=== PATIENT | male | born 1960 | race Caucasian/White ===

== ENCOUNTER 2018-07-04 09:35 | Observation (INO) ==
[2018-07-04] MEDS ORDERED: Chlorhexidine Gluconate 2% 1 Pack (2 Cloths) TOPICAL ONE (10:30)
[2018-07-04] MEDS ORDERED: Sodium Chlor 0.9% Inj 500 ML IV.CONT ONE (10:30)
[2018-07-04] MEDS ORDERED: Sod Chloride 0.9% Inj 1,000 ML IV.CONT SCH (10:30)
[2018-07-04] MEDS ORDERED: Metoprolol Tartrate 25 MG Tablet PO ONE (10:30)
[2018-07-04] MEDS ORDERED: Vancomycin Inj 1,000 MG in Sodium Chlor 0.9% Inj 250 ML IV.SIG SCH (11:00)
[2018-07-04 11:16] LABS: Baso # (Auto) 0.1 th/mm3 (0.0-0.2); Baso % (Auto) 1.1 % (0.0-2.0); Eos # (Auto) 0.1 th/mm3 (0.0-0.4); Eos % (Auto) 1.5 % (0.0-4.0); Hematocrit 44.6 % (39.0-51.0); Hemoglobin 15.4 gm/dL (13.0-17.0); Lymph # (Auto) 1.9 th/mm3 (1.0-4.8); Lymph % (Auto) 24.9 % (9.0-44.0); Mean Corpuscular HGB Conc 34.5 % (32.0-36.0); Mean Corpuscular Hemoglobin 33.3 pg (27.0-34.0); Mean Corpuscular Volume 96.5 fL (80.0-100.0); Mean Platelet Volume 8.3 fL (7.0-11.0); Mono # (Auto) 0.4 th/mm3 (0.0-0.9); Mono % (Auto) 5.3 % (0.0-8.0); Neut # (Auto) 5.2 th/mm3 (1.8-7.7); Neut % (Auto) 67.2 % (16.0-70.0); Platelet Count 209 th/mm3 (150-450); Red Blood Count 4.62 mil/mm3 (4.50-5.90); Red Cell Distribution Width 14.1 % (11.6-17.2); White Blood Count 7.8 th/mm3 (4.0-11.0)
[2018-07-04] MEDS ORDERED: Gelatin Size 100 Topical Foam ONE (11:38)
[2018-07-04] MEDS ORDERED: Thrombin Topical Soln 5,000 UNIT Vial TOPICAL ONE (11:38)
[2018-07-04 11:42] LABS: Bilirubin,Urine Negative (Negative); Clarity,Urine Clear (Clear); Color,Urine Yellow (Yellw/Straw); Glucose,Urine (UA) Negative (Negative); Leukocyte Esterase,Urine Negative (Negative); Mucus,Urine Few /lpf (Occasional); Nitrite,Urine Negative (Negative); Specific Gravity,Urine 1.012 (1.002-1.035)
[2018-07-04] MEDS ORDERED: ceFAZolin 1 GM Premix Inj 2 GM/100 ML PIGGYBACK IV.SIG ONE (12:29)
[2018-07-04] MEDS ORDERED: Artificial Tears Opth Oint 3.5 GM Tube ONE (12:32)
[2018-07-04] MEDS ORDERED: fentaNYL Citrate Inj 100 MCG/2 ML Ampul ONE (15:08)
[2018-07-04] MEDS ORDERED: *morphine SULFATE 10 MG/ML PERIprocedure ONLY ONE ×2 (15:25→15:37)
[2018-07-04] MEDS ORDERED: Bisacodyl 10 MG Supp RECTAL PRN ×2 (15:26→15:28)
[2018-07-04] MEDS ORDERED: Acetaminophen 325 MG Tablet PO PRN (15:28)
[2018-07-04] MEDS ORDERED: Menthol 5.8 MG Lozenge BUCCAL PRN (15:28)
[2018-07-04] MEDS: Sod Chloride 0.9% Inj 1,000 ML IV.CONT SCH (15:40)
--- NOTE | 2018-07-04 15:44 | XR ---
EXAM DATE: 07/04/2018 3:33 PM EST AGE/SEX: 58 years / Male INDICATIONS: Fusion C5,C6 with screws and plate placement. CLINICAL DATA: This is the patient's initial encounter. Patient reports that signs and symptoms have been present for 1 day and indicates a pain score of Nonresponsive. MEDICAL/SURGICAL HISTORY: None. None. COMPARISON: No prior exams available for comparison. FINDINGS: AP and lateral views of the cervical spine were obtained and demonstrate the patient status post ante rior cervical fusion at the C5-6 level with intact anterior screw plate fixation device. Bone graftin g material is noted in the interspaces with metallic markers. The alignment is anatomic. An endotrach eal tube and nasogastric tube are noted. There is mild overlying artifact. CONCLUSION: Status post anterior fusion at the C5-6 level. Electronically signed by: Felipe Hernandez MD Board Certified Radiologist 07/04/2018 3:42 PM EST
--- NOTE | 2018-07-04 16:11 | ECG ---
Date Performed: 07/04/2018 Time Performed: 11:31:26 PTAGE: 58 years EKG: Sinus rhythm INCOMPLETE RIGHT BUNDLE BRANCH BLOCK BORDERLINE ECG NO PREVIOUS TRACING DOCTOR: Pérez Mc Interpretating Date/Time 07/04/2018 16:10:41
--- NOTE | 2018-07-04 17:13 | P.OP ---
Preoperative Diagnosis: C5-6 disk herniation Postoperative Diagnosis: C5-6 disk herniation Date of procedure: 07/04/18 Procedure: C5-6 anterior cervical discectomy, interbody arthodhesis using PEEK cage filled with autologous bone graft, Simplicity plate and screws Surgeon: Wilian Bray MD Pathology: none sent Operation and Findings: INDICATIONS FOR THE PROCEDURE Mr Michel is a 58 year-old male who presented with intractable neck pain and clinical evidence of C6 upper extremity radiculopathy.He has a disk herniation at C5-6. He has failed maximum nonsurgical management including multiple modalities of conservative treatment as well as pain management interventions by an interventional pain specialist. A surgical decompression and arthrodhesis were indicated. The [id number] details of the procedure, indications, alternatives, risks and potential complications were fully discussed with the patient. The patient fully understood. All The questions were answered. No guarantees were given. The patient voiced requesting the procedure and provided informed consents. The patient was offered the alternative of delaying the procedure and continuing with nonsurgical management. DETAILS OF THE SURGICAL PROCEDURE After the induction of general anesthesia, endotracheal intubation was performed. A Wills catheter, bilateral BRI hose, and sequential compression devices were placed and kept throughout the procedure. The patient was positioned supine on a Arnold table with the head over a gel doughnut. All pressure points were carefully padded with egg crate mattress. The eyes were tapped shut after ointment was applied by the anesthesiologist to prevent corneal abrasion. A Tiffanie hugger was placed over the exposed lower body to maintain control of the core body temperature. The electrophysiological team placed the needles and electrodes in their proper location and baseline SSEP's and motor evoked potentials were registered. The anterior cervical region was prepped and draped in the usual sterile fashion. A localizing x-ray was performed with a C-arm. The surgical procedure was performed in several steps as follow: SURGICAL APPROACH A skin incision was made along the middle cervical crease with a #10 blade. The dissection was carried out through the platysma exposing the sternocleidomastoid muscle. The cervical spine was approached following the fascial layers of the neck just medial to the anterior border of the sternocleidomastoid and carotid sheath by a combination of sharp and dull dissection. The omohyoid muscle was identified and carefully dissected laterally and the deep cervical fascia was carefully opened. The longus colli muscles were retracted to each side of the midline. A marker was placed at the disc space C5-6 and a cross-table lateral x-ray performed with a C-arm. SURGICAL DECOMPRESSION In order to decompress the anterior surface of the spinal cord it was necessary to preform a microsurgical resection of the disk. At this point in the procedure the operating microscope was draped in the usual sterile fashion and brought to the field. The rest of the surgical procedure was performed using microdissection technique with the exception of the closure. Under the operative microscopic, an anterior osteophytic spur was carefully removed using the leksell, and a self-retaining retractor was placed underneath the longus colli muscle. The annulus at C5-6 was incised with a #15 blade and microdiscectomy was then carefully carried out using angled curets and pituitary forceps. The patient had a posterior disk herniation complex which was producing mass affect on the anterior surface of the dural sac. This was carefully drilled with a TPS drill and resected with a think foot plate 2mm kerrison under high magnification. The posterior longitudinal ligament was then elevated with an angled curet and incised with a 15 bladed knife. A careful resection of the posterior longitudinal ligament was carried out using a thin footplate 2 mm Kerrison. The decompression was then carried out laterally , and a bilateral foraminotomy was performed with a 2mm thin foot Kerrison. Then the vertebral bodies above and below the disk space were undercut using a 2 mm thin foot Kerrison. The epidural space was the systematically assessed with a nerve hook in search for disk fragments. An excellent decompression was achieved in both, the dural sac and bilateral exiting nerve roots. The incision was then irrigated with a large amount of antibiotic solution INTERBODY ARTHRODHESIS In order to avoid collapse of the disk space which would result in bilateral foraminal stenosis, and to increase the chances of a successful fusion, it was necessary to place an interbody cage filled with autologous bone. At this point of the procedure, the superior and inferior endplates were then evenly decorticated with a TPS drill. The use of a drill in combination with a curette allowed me to systematically remove the cartilaginous endplates, exposing healthy bone for the interbody arthrodesis. fourteen millimeters distraction pins were then placed at the vertebral bodies adjacent to the disk space, and gentle distraction was applied. The size of the interbody cage was then assessed using different size spacers, and a rasp was used to ensure no residual cartilage. A PEEK cage of the appropriate size was selected, and the interbody arthrodesis was then preformed by carefully impacting a PEEK cage filled with autologous bone graft to the disc space C5-6. An excellent position of the cage was achieved. This was was confirmed anatomically by felling the space posterior to the implant and distance to the anterior surface of the dural sac. Radiological confirmation of the position was performed with a cross lateral xray performed with the C-arm. INTERNAL INSTRUMENTAL FIXATION Once that the interbody device was in an appropriate position, it was necessary to stabilize the spine with anterior instrumentation. Anterior instrumentation has demonstrated to increase the rate of fusion, accelerate the patient's recovery, and decrease the rate of failed interbody grafts. At this point of the procedure, the distance between the vertebral bodies was carefully measures, and a Simplicity plate was brought to the field and presented in front of the C5 and 6 vertebral bodies. Event Av Operator holes were then drilled using the TPS drill, and the plate was then secured to the spine using self-drilling, self-tapping screws. Initially, the inferior right screw was inserted, followed by placement of the contra lateral upper screw. The remaining screws were sequentially placed in a contra-lateral fashion. A proper purchase was achieved with all screws and the position of the cage, plate and screws, and alignment of the spine was assessed anatomically by direct visualization, and radiologically by performing a cross lateral xray of the cervical spine with the C-arm. CLOSURE The incision was irrigated with several liters of antibiotic solution. Hemostasis was achieved with a bipolar. The screws were locked to prevent backing out. A 7 mm Arnold-Honeycutt drain was left in the prevertebral space and externalized through a separate stab incision. The incision was then closed in layers. 3-0 Vicryl with interrupted sutures was used to close the platysma and subcutaneous tissue. The skin was closed with 4-0 running subcuticular Vicryl and Dermabond was applied to the skin. The drain was secured with a 3-0 nylon. At the end of the procedure the sponge, needle and instrument counts were all correct. The estimated blood loss was less than 60 cc. No blood transfusion was given. No intraoperative complications occurred. The patient received prophylactic antibiotics. The patient was then extubated and transferred to the recovery room in stable condition.
[2018-07-04] MEDS ORDERED: Senna/Docusate Sodium 8.6/50 MG Tablet PO SCH (21:00)
[2018-07-04] MEDS: Gabapentin 300 MG Capsule PO SCH (21:00)
[2018-07-04] MEDS: Morphine Sulfate Inj 2 MG/ML Vial IV.PUSH PRN (21:00)
[2018-07-04] MEDS: Senna/Docusate Sodium 8.6/50 MG Tablet PO SCH (21:00)
[2018-07-04] MEDS: ceFAZolin 2 GM Premix Inj 2 GM/50 ML PIGGYBACK IV.SIG SCH (21:01)
[2018-07-04] MEDS ORDERED: Propofol Inj 500 MG/50 ML Vial ONE (21:32)
[2018-07-04] MEDS ORDERED: fentaNYL Citrate Inj 250 MCG/5 ML Ampul ONE (21:46)
[2018-07-05] MEDS: Sod Chloride 0.9% Inj 1,000 ML IV.CONT SCH ×2 (00:36→11:30)
[2018-07-05] MEDS: Morphine Sulfate Inj 2 MG/ML Vial IV.PUSH PRN ×3 (03:18→12:25)
[2018-07-05] MEDS: ceFAZolin 2 GM Premix Inj 2 GM/50 ML PIGGYBACK IV.SIG SCH ×2 (06:27→13:00)
[2018-07-05] MEDS: Gabapentin 300 MG Capsule PO SCH (08:06)
[2018-07-05] MEDS: Senna/Docusate Sodium 8.6/50 MG Tablet PO SCH (08:06)
[2018-07-05] MEDS ORDERED: Multivitamin/Minerals Therapeutic Tablet PO SCH (09:00)
[2018-07-05 13:12] VITALS: BP 136/75; PULSE 80; RESP 18; TEMP 97.6; O2SAT 95
--- NOTE | 2018-07-05 14:04 | P.PNNS ---
Subjective Interval history: The patient is stable postoperative day #1 status post anterior cervical discectomy and fusion at C5-C6 he complains of some mild neck pain and dysphagia. He denies any hoarseness. He is tolerating a diet Physical Exam Vital signs: Vital Signs 07/04/18 15:01 07/04/18 15:15 07/04/18 15:30 Temperature 97.6 F Pulse Rate 85 85 79 Respiratory Rate 18 18 18 Blood Pressure 154/66 H 148/91 H 135/78 Pulse Oximetry 99 95 95 07/04/18 15:45 07/04/18 16:00 07/04/18 16:14 Temperature 98.1 F Pulse Rate 81 75 76 Respiratory Rate 18 18 18 Blood Pressure 118/85 143/93 H 120/84 Pulse Oximetry 94 L 94 L 94 L 07/04/18 16:38 07/04/18 20:41 07/05/18 00:14 Temperature 97.4 F L 97 F L 97.6 F Pulse Rate 67 78 74 Respiratory Rate 18 16 16 Blood Pressure 134/88 120/65 118/57 L Pulse Oximetry 95 92 L 93 L 07/05/18 03:33 07/05/18 07:43 07/05/18 13:02 Temperature 98.1 F 97.8 F 97.6 F Pulse Rate 74 81 80 Respiratory Rate 17 17 18 Blood Pressure 135/73 129/73 136/75 Pulse Oximetry 93 L 92 L 95 Intake & Output 07/04/18 07/05/18 07/05/18 18:59 06:59 18:59 Intake Total 2720 / 2720 918 / 918 1050 / 1050 Output Total 50 / 50 Balance 2720 / 2720 868 / 868 1050 / 1050 Weight 85.6 kg Intake: IV 918 / 918 1050 / 1050 NS Inj 1,000 ML @ 100 mls/hr IV 868 / 868 1000 / 1000 .CONT .Q10H KAVYA Rx#:[id number] Ancef 2 GM Premix Inj 2 gm In 50 / 50 50 / 50 50 ml @ 100 mls/hr IV.SIG Q8H KAVYA Rx#:[id number] Oral 720 / 720 Anesthesia Amount 1999 / 1999 Output: Wound Drainage 50 / 50 # 1 Anterior Neck Narinder 50 / 50 Other: # Voids 1 Date of Last Bowel Movement 07/04/18 07/04/18 Weight On Admission 85.6 kg - Routine Neurological Exam The patient is awake and alert. He is oriented by 3. Cognitive function is grossly intact. Speech is fluent. Cranial nerve testing 2 through 12 is grossly intact. He is moving all 4 extremities. The numbness he had in his upper extremities has improved. He is ambulatory and continent of bowel and bladder. The wound is clear. Assessment and Plan - Plan The patient is stable for discharge. He appears to be stable one day following anterior cervical discectomy and fusion at C5 and C6. Discharge instructions have been given. He has medications at home and does not require prescriptions. He is to follow-up with Dr. Bray as scheduled. He is also to call the office on Saturday with any concerns and follow-up.
--- NOTE | 2018-07-07 14:36 | P.DS ---
Date of admission: 07/04/18 15:50 Primary care physician: Aura Primary Care Physician Brief History from admission: Mr Michel is a 58 year-old male who presented with intractable neck pain and clinical evidence of C6 upper extremity radiculopathy.He has a disk herniation at C5-6. He has failed maximum nonsurgical management including multiple modalities of conservative treatment as well as pain management interventions by an interventional pain specialist. A surgical decompression and arthrodhesis were indicated. DS: Summary Hospital Course: Mr. Michel underwent a C5-6 anterior cervical discectomy, interbody arthrodesis using PEEK cage filled with autologous bone graft, Simplicity plate and screws for C5-6 disk herniation on 07/04/18. His surgery went well and he was discharged home in stable conditions. - Time Spent with Patient Total time spent providing and/or coordinating discharge services: Less than 30 minutes - Quality: VTE Deep Vein Thrombosis/Pulmonary Embolism Present on Admission: No Results Procedures completed during hospitalization: C5-6 anterior cervical discectomy, interbody arthodhesis using PEEK cage filled with autologous bone graft, Simplicity plate and screws - Impressions ITS Impressions Cervical Spine X-Ray 07/04/18 00:00 CONCLUSION: Status post anterior fusion at the C5-6 level. Discharge Plan - Discharge Disposition Patient Disposition: Discharge Home - Discharge Order Discharge Orders: Neurosurgery Clear for Discharge (Routine); Ordered 07/05/18 Ordered By: Mau Vann - Physicians Team Primary Care Provider: Primary Care Aura Gifford Attending Provider: Wilian Bray - Rxs /Orders / Referrals /Forms Prescriptions: No Action hydrocodone-acetaminophen 10-325 mg Tablet 1 tab PO Q6H PRN (Reason: Pain) [id number] [Daily Multivitamin] 200-100-500 mcg Capsule 1 tab PO DAILY Referrals: Primary Care Aura Gifford [Primary Care Provider] - See Instructions - Discharge Instructions Patient Printed Instructions: Hydrocodone/Acetaminophen (By mouth), Laminectomy (DC) Additional Instructions: Rx for [place] 10/325mg (18) given at time of discharge. Follow up with Dr. Bray as discussed. Take medications as prescribed.
== END 2018-07-05 15:19 | disposition home or self-care (01) ==
LOC: HSDI 09:35 → HSDC 09:35 → N06 16:41
PROVIDERS: ADMIT Neurological Surgery; ATTEND Neurological Surgery